=== PATIENT | male | born 1955 | race Hispanic/Latino ===

== ENCOUNTER → 2018-06-11 | Day surgery (SDC) | payer OTHER ==
[~2018-06-11] MED LIST: ASPIRIN81 MG PO; BALANCED SALT SOLN (OPTH) 15 ML BTL IO ONE; FENTANYL CITRATE/PF 100MCG/2 ML INJ ONE; GELATIN SPONGE 12-7MM ONE; GLYBURIDE5 MG PO; LANTUS 3ML100 UNITS/ SQ; LIDOCAINE 2% /EPINEPHRINE 20 ML SDV INJ ONE; LIDOCAINE HCL 2% LOCAL INJ 5 ML SDV VIAL INJ ONE; LOSARTAN POTASS25 MG PO; LOVASTATIN40 MG PO; METFORMIN HCL850 MG PO; MIDAZOLAM HCL 2 MG/2 ML VIAL ONE; NEOMYCIN/POLYMYXIN/DEX (OPTH) 3.5 GM TUBE ONE; PROPOFOL IV EMULSION 10 MG/ML 20 ML VIAL ONE
== END | disposition home or self-care (01) ==
LOC: OR 11:39
PROVIDERS: ATTEND Ophthalmology
DX: H02.834 Dermatochalasis of left upper eyelid (principal); H02.831 Dermatochalasis of right upper eyelid; E11.9 Type 2 diabetes mellitus without complications; I10 Essential (primary) hypertension; G47.33 Obstructive sleep apnea (adult) (pediatric); Z79.4 Long term (current) use of insulin; Z79.82 Long term (current) use of aspirin
CPT/HCPCS: 15823; 36415; 82948; J2001 ×2; J2250

== ENCOUNTER → 2020-02-12 | Day surgery (SDC) | payer MEDICARE ==
--- NOTE | 2020-02-05 12:33 | NUR ---
Patient temperature checked: 97.8F. Patient reported he had not been out of the country in the last 14 days. Patient reported he had not been around anyone who have been out of the country. Patient denies fever, cough, or shortness of breath in the last 14 days.
[2020-02-05 12:44] LABS: BASOPHILS % 0.5 % (0.0-1.0); EOSINOPHILS # (AUTO) 0.4 (0.0-0.4); EOSINOPHILS % 4.6 % (0.0-6.0); HEMOGLOBIN 16.3 g/dL (14.0-18.0); LYMPHOCYTES # (AUTO) 2.5 (1.0-3.2); LYMPHOCYTES % 30.7 % (18.0-39.1); MEAN CORPUSCULAR HEMOGLOBIN 31.1 pg (28-32); MEAN CORPUSCULAR HGB CONC 34.7 g/dL (31-35); MEAN CORPUSCULAR VOLUME 89.7 fL (81-99); MONOCYTES # (AUTO) 0.6 (0.2-0.8); MONOCYTES % 6.9 % (4.4-11.3); NEUTROPHILS # (AUTO) 4.6 (2.1-6.9); NEUTROPHILS % 57.1 % (38.7-80.0); PLATELET COUNT 270 x10e3/uL (140-360); RED BLOOD COUNT 5.24 x10e6/uL (4.3-5.7); RED CELL DISTRIBUTION WIDTH 12.2 % (11.7-14.4)
[2020-02-05 12:58] LABS: INR 0.88; PROTHROMBIN TIME 12.4 seconds (11.9-14.5)
[2020-02-05 13:07] LABS: ALANINE AMINOTRANSFERASE 19 IU/L (0-55); ALBUMIN 4.1 g/dL (3.5-5.0); ALBUMIN/GLOBULIN RATIO 1.3 (0.8-2.0); ALKALINE PHOSPHATASE 123 IU/L (40-150); ANION GAP 9.1 mmol/L (8-16); BLOOD UREA NITROGEN 13 mg/dL (7-26); BUN/CREATININE RATIO 16 (6-25); CALCIUM 9.4 mg/dL (8.4-10.2); CARBON DIOXIDE 27 mmol/L (22-29); CHLORIDE 104 mmol/L (98-107); CREATININE, SERUM 0.82 mg/dL (0.72-1.25); EST GLOMERULAR FILTRATION RATE > 60 ML/MIN (60-); GLUCOSE 172 mg/dL (74-118); POTASSIUM 4.1 mmol/L (3.5-5.1); SODIUM 136 mmol/L (136-145)
[2020-02-12] VITALS (7 sets, daily range): BP systolic 127–134; BP diastolic 71–84
[~2020-02-12] VITALS: Ht 172.7 cm; Wt 98.9 kg
[~2020-02-12] MED LIST changes: -BALANCED SALT SOLN (OPTH) 15 ML BTL IO ONE; -GELATIN SPONGE 12-7MM ONE; +HEPARIN SOD (PORCINE) 1000 UNIT/ML 30ML ONE; +HEPARIN SOD/SOD CHLORIDE 2,000 ML ONE; +IOPAMIDOL 370 MG/ML 200 ML INFUS..BTL INJ ONE; -LIDOCAINE 2% /EPINEPHRINE 20 ML SDV INJ ONE; +LIDOCAINE HCL 2% LOCAL 20 ML VIAL ONE; -LIDOCAINE HCL 2% LOCAL INJ 5 ML SDV VIAL INJ ONE; -NEOMYCIN/POLYMYXIN/DEX (OPTH) 3.5 GM TUBE ONE; +NITROGLYCERIN/D5W 200 MCG/ML 250 ML ONE; -PROPOFOL IV EMULSION 10 MG/ML 20 ML VIAL ONE; +SODIUM CHLORIDE 0.9% 1000ML 1,000 ML ONE; +VERAPAMIL HCL 2.5 MG/ML 2 ML VIAL ONE
--- NOTE | 2020-02-12 09:38 | NUR ---
0938am RECEIVING NOTE [facility]............................................................... Bedside report received from WALI Nicole. [id number]. Alert oriented and appropriate, PERRLA, respirations even and unlabored to room air. Pulses x4 extremities equal and strong. Pedal pulses PT/DP X4Cap fill brisk < 3 sec. RT TR band ok to decrease air at 1030am. Skin warm and dry integrity appears D/I. IV 20g to left hand as 75hr presents healthy w/o s/s of infiltration or complaint. Abdomen soft and supple. pt offered toileting, denies need to urinate or defecate. No personal affects with patient. Family XXXXX. Pt and family verbalizes understanding of POC. Currently w/o complaint of pain or need. ds/rn
--- NOTE | 2020-02-12 10:30 | NUR ---
1030aRADIAL COMPRESSION REMOVAL NOTE: Initial Cuff volume 10 cc 1030a -5cc Removed No hematoma/bleeding noted with normal neurovascular function. 1100a -5cc Removed No hematoma/ bleeding noted with normal neurovascular function. Air removal completed. Stasis achieved sterile 2x2,Tegaderm, Coban dressing No hematoma, bleeding noted with normal neurovascular function. Wrist splint in place. Pt instructed on POC. Ds/Rn
--- NOTE | 2020-02-12 11:15 | NUR ---
1115am [facility] DISCHARGE NURSING NOTE Pt meets DC criteria. Rt Radial assessed for s/s of complication and presence of hematoma. Skin warm, dry, no discolor, and pulses present. IV removed from left Distal tip appears intact. VS WNL. Pt denies pain, sob, or need at this time. Family at bedside. Review of discharge paperwork and follow up instructions. verbalized understanding. Pt to wheelchair and transported to front of hospital. Transferred to private vehicle under own strength w/o incident with DC paperwork in hand. - zakia/odin
--- NOTE | 2020-02-12 13:23 | Operative Report ---
DATE OF PROCEDURE: 02/12/2020 SURGEON: Godfrey Corcoran DO PROCEDURES PERFORMED: 1. Conscious sedation, 30 minutes. 2. Selective coronary angiography x2. 3. Left heart catheterization. PREPROCEDURE DIAGNOSIS: Abnormal stress test. POSTPROCEDURE DIAGNOSIS: Minimal coronary artery disease. ESTIMATED BLOOD LOSS: Less than 20 mL. SPECIMENS REMOVED: None. PROCEDURE IN DETAIL: After informed consent was obtained, the patient was brought to the cardiac catheterization laboratory in a fasting and nonsedated state. Bilateral groins were prepped and draped in usual sterile fashion. His right wrist was also prepped and draped in usual sterile fashion. A 2% lidocaine was infiltrated over the right anterior wrist for local anesthesia. The patient received fentanyl and midazolam for conscious sedation administered by the nurse and the patient was monitored physiologically and his conscious state by the nurse and myself. This was done for approximately 30 minutes. Using a micropuncture needle, the right radial artery was accessed via the modified Seldinger technique and a 6-[place] Slender sheath was placed. Next, diagnostic coronary angiography and left heart catheterization were performed using a TIG-4 catheter. The patient tolerated the procedure well with no immediate complications and transported back to his room in stable condition. PROCEDURAL FINDINGS: 1. Left main coronary artery is patent without significant coronary artery disease. 2. Left anterior descending coronary artery has a minimal 20% proximal stenosis. There is no distal or diagonal disease present. 3. The left circumflex coronary artery is ectatic throughout the AV groove. This provides 3 obtuse marginal vessels with mild luminal irregularities. 4. The right coronary artery is a small vessel and provides a small posterior descending coronary artery. The proximal RCA itself has a 20% to 30% minimal stenosis. 5. The left ventricular end-diastolic pressure is mildly elevated at 20 to 25 mmHg with no aortic valve gradient present upon pullback. IMPRESSION: Minimal coronary artery disease. RECOMMENDATIONS: Continue medical therapy. Godfrey Corcoran DO BM/MODL /[id number]
== END | disposition home or self-care (01) ==
LOC: CATH LAB 07:24
PROVIDERS: ATTEND Internal Medicine Cardiovascular Disease
DX: I25.110 Atherosclerotic heart disease of native coronary artery with unstable angina pectoris (principal); I10 Essential (primary) hypertension; R94.39 Abnormal result of other cardiovascular function study; E78.5 Hyperlipidemia, unspecified; E13.69 Other specified diabetes mellitus with other specified complication; R42 Dizziness and giddiness; Z01.812 Encounter for preprocedural laboratory examination; Z79.82 Long term (current) use of aspirin; Z79.84 Long term (current) use of oral hypoglycemic drugs; Z68.37 Body mass index [BMI] 37.0-37.9, adult; Z82.49 Family history of ischemic heart disease and other diseases of the circulatory system
CPT/HCPCS: 36415; 75710; 80053; 85025; 85610; 93458; C1887; J1644; J2001; J2250; J3010; J7030; Q9967; 36247; 99152; 99153